=== PATIENT | male | born 1995 | race Two or more races ===

== ENCOUNTER → 2021-09-27 06:35 | Outpatient (CLI) | payer OTHER | END | disposition home or self-care (01) | LOC: LAB 06:35 | PROVIDERS: ATTEND Obstetrics & Gynecology | DX: Z20.828 Contact with and (suspected) exposure to other viral communicable diseases (principal); Z20.818 Contact with and (suspected) exposure to other bacterial communicable diseases ==

== ENCOUNTER 2021-09-28 18:12 | Emergency (ER) | payer OTHER ==
[~2021-09-28] VITALS: Ht 180.3 cm; Wt 84.8 kg
== END 2021-09-28 22:27 | disposition home or self-care (01) ==
LOC: ER 18:12
DX: R10.11 Right upper quadrant pain (principal)